=== PATIENT | male | born 1965 | race Native Hawaiian/Other Pacific Islander ===

== ENCOUNTER 2017-05-15 15:28 | Outpatient (CLI) | payer OTHER ==
[~2017-05-15 15:28] MED LIST: ALBU90AE13 INH; AMLO2.5T PO; ASPIR-8181 MG PO; GLIP10TA55 PO; HYDR25TA60 PO; LEVOFLOXACIN500 MG PO; METF500T PO; PRED10TA27 PO; ZESTRIL40 MG PO
== END 2017-05-15 21:41 | disposition home or self-care (01) ==
LOC: LABW 15:28
DX: B35.1 Tinea unguium (principal)
CPT/HCPCS: 36415; 84450; 84460

== ENCOUNTER 2017-10-18 07:31 | Outpatient (CLI) | payer OTHER | END 2017-10-18 19:13 | disposition home or self-care (01) | LOC: CT 07:31 | DX: R10.9 Unspecified abdominal pain (principal) | CPT/HCPCS: 36415; 82565; 84520; Q9963 ==

== ENCOUNTER 2017-10-21 14:16 | Outpatient (CLI) | payer OTHER | END 2017-10-21 20:15 | disposition home or self-care (01) | LOC: LABW 14:16 | DX: R10.9 Unspecified abdominal pain (principal); R19.7 Diarrhea, unspecified | CPT/HCPCS: 82272; 82705; 87015; 87045; 87205; 87338; 87899 ==

== ENCOUNTER 2019-04-13 11:18 | Outpatient (CLI) | payer OTHER | END 2019-04-13 19:34 | disposition home or self-care (01) | LOC: MRI 11:18 | DX: M23.8X1 Other internal derangements of right knee (principal) ==